=== PATIENT | male | born 1930 | race Caucasian/White ===

== ENCOUNTER 2021-02-12 05:18 | Day surgery (SDC) | payer MEDICARE ==
[~2021-02-12] VITALS: Ht 177.8 cm; Wt 86.1 kg
[2021-02-12] VITALS (13 sets, daily range): BP systolic 106–133; BP diastolic 58–77
[~2021-02-12 05:18] MED LIST: ACET-2119 PO; ASCO500C17 PO; CYAN500T71 PO; FLO0.4C PO; IRON150C13 PO; LOPE2CAP PO; POTA10TA10 PO; ringers solution, lacted 1,000 ML IV SCH
[2021-02-12] MEDS ORDERED: famotidine 20mg tablet PO ONE (05:30)
[2021-02-12] MEDS ORDERED: cefazolin/dext.iso 2gm/100ml 100 ML IV ONE (05:30)
[2021-02-12 06:37] LABS: BASOPHILS % (AUTO) 0.4 % (0-1); EOSINOPHILS # (AUTO) 0.1 X10'3 (0-0.9); EOSINOPHILS % (AUTO) 3.2 % (0-6); LYMPHOCYTES # (AUTO) 0.9 X10'3 (1.1-4.8); LYMPHOCYTES % (AUTO) 19.8 % (21-51); MEAN CORPUSCULAR HEMOGLOBIN 30.5 PG (27.0-31.0); MEAN CORPUSCULAR HGB CONC 32.7 g/dL (33.0-36.5); MEAN CORPUSCULAR VOLUME 93.2 FL (78-98); MEAN PLATELET VOLUME 10.2 FL (7.4-10.4); MONOCYTES # (AUTO) 0.6 X10'3 (0-0.9); MONOCYTES % (AUTO) 12.8 % (2-12); NEUTROPHILS % (AUTO) 63.8 % (42-75); PRE OP HEMATOCRIT 33.6 % (42.0-52.0); PRE OP PLATELET COUNT 135 X10'3 (140-440)
[2021-02-12 06:52] LABS: ALBUMIN 3.5 G/DL (3.4-5.0); ALKALINE PHOSPHATASE 75 IU/L (46-116); BLOOD UREA NITROGEN 15 MG/DL (7-18); BUN/CREATININE RATIO 13.9 (5.4-32.0); CALCIUM 8.7 MG/DL (8.5-10.1); CHLORIDE 109 MMOL/L (99-107); CREATININE 1.08 MG/DL (0.60-1.10); PRE OP ALT 16 U/L (30-65); PRE OP ANION GAP 5 (8-16); PRE OP AST 16 U/L (10-37); PRE OP BILIRUB, TOTAL 0.4 MG/DL (0.0-1.0); PRE OP GLUCOSE 93 MG/DL (70-104); PRE OP SODIUM 143 MMOL/L (135-145); TOTAL CARBON DIOXIDE 28.7 MMOL/L (24-32); TOTAL PROTEIN 6.9 G/DL (6.4-8.2); eGFR 65 ML/MIN
--- NOTE | 2021-02-12 07:00 | NUR ---
NOTIFIED OF HGB 11.0 FROM MD VALDEZ AWARE. NO NEW ORDERS NOTED. Addendum: 02/12/21 at 0847 by Karma Golden RN Amended: Links added.
[2021-02-12] MEDS ORDERED: labetalol 20mg/4ml (5mg/ml) syringe IV PRN (07:15)
[2021-02-12] MEDS ORDERED: fentaNYL/PF 50MCG/1 ML 2ML syringe IV PRN ×2 (07:15)
[2021-02-12] MEDS ORDERED: ringers solution, lacted 1,000 ML IV SCH (07:15)
[2021-02-12] MEDS ORDERED: ondansetron/PF 4mg/2ml inj IV PRN (07:15)
[2021-02-12] MEDS ORDERED: morphine 2 MG/ML inj. syringe IV PRN (07:15)
[2021-02-12] MEDS ORDERED: hydrALAZINE 20mg/ml inj. IV PRN (07:15)
[2021-02-12] MEDS ORDERED: morphine 4 MG/ML inj SYRINge IV PRN (07:15)
[2021-02-12] MEDS ORDERED: fentaNYL/PF 50MCG/1 ML 2ML syringe ONE (07:19)
[2021-02-12] MEDS ORDERED: midazolam 1 mg/ML 2ml injection ONE (07:19)
[2021-02-12] MEDS ORDERED: LIDOcaine 2% (20mg/ml) 5ml vial ONE (07:20)
[2021-02-12] MEDS ORDERED: propofol inj 20 ML IV ONE (07:20)
[2021-02-12] MEDS ORDERED: ondansetron/PF 4mg/2ml inj ONE (07:24)
[2021-02-12] MEDS ORDERED: sevoflurane 250ml liquid IH ONE (07:33)
[2021-02-12] MEDS ORDERED: dexamethasone sod phosphate 10mg/ml inj ONE (07:33)
--- NOTE | 2021-02-12 08:17 | NUR ---
Received from OR via [facility], accompanied by Anesthesiologist DR CANALES and report given by Anesthesiologist. PT VERY DROWSY, ORAL AIRWAY IN PLACE, WALSH CATHETER TO GRAVITY DRAINAGE W/LIGHT PINK URINE IN DRAINAGE BAG. Addendum: 02/12/21 at 0838 by Nelsy Nair RN Amended: Links added.
[2021-02-12] MEDS ORDERED: acetaminophen 1,000mg/100ml IV 100 ML IV ONE (09:20)
--- NOTE | 2021-02-12 10:27 | NUR ---
PT STATES DISCOMFORT IMPROVING. REPORT CALLED TO [facility], PT DRESSED AND ASSISTED TO W/C FOR D/C TO [facility] VIA W/C TO [facility] W/O INCIDENT. Addendum: 02/12/21 at 1052 by Nelsy Nair RN Amended: Links added.
== END 2021-02-12 10:27 | disposition home or self-care (01) ==
LOC: PAS 05:18
PROVIDERS: ATTEND Urology
DX: N99.112 Postprocedural membranous urethral stricture, male (principal); D64.9 Anemia, unspecified; I48.91 Unspecified atrial fibrillation; N40.1 Benign prostatic hyperplasia with lower urinary tract symptoms; M19.90 Unspecified osteoarthritis, unspecified site; F03.90 Unspecified dementia, unspecified severity, without behavioral disturbance, psychotic disturbance, mood disturbance, and anxiety; K58.9 Irritable bowel syndrome, unspecified; Z94.7 Corneal transplant status; Z87.891 Personal history of nicotine dependence; Z98.890 Other specified postprocedural states; Z85.46 Personal history of malignant neoplasm of prostate; Z72.89 Other problems related to lifestyle; Z92.21 Personal history of antineoplastic chemotherapy; Z88.2 Allergy status to sulfonamides; Z79.899 Other long term (current) drug therapy
CPT/HCPCS: 36415; 52281; 80053; 82948; 85025; 93005; C1769; J0131; J2001; J2250; J2405; J2704; J3010; A4338; A4618; J1100; J7120